=== PATIENT | male | born 1980 | race Caucasian/White ===

== ENCOUNTER 2024-12-20 05:17 | Emergency (ER) | payer SELFPAY | END 2024-12-20 07:00 | disposition home or self-care (01) | LOC: LB.ED 05:17 | DX: E87.6 Hypokalemia (principal); I10 Essential (primary) hypertension; F17.200 Nicotine dependence, unspecified, uncomplicated; Z88.5 Allergy status to narcotic agent; Z79.899 Other long term (current) drug therapy | CPT/HCPCS: 99284; A9270 ==